=== PATIENT | female | born 2000 | race Caucasian/White ===

== ENCOUNTER 2020-01-15 14:05 | Emergency (ER) | payer OTHER ==
[~2020-01-15] VITALS: Ht 160 cm; Wt 58.2 kg
[2020-01-15] MEDS ORDERED: PREN29TA4 PO (14:13)
[2020-01-15 15:10] LABS: BASO % 0.2 % (0.0-1.0); EOS # 0.4 10^3/uL (0.0-0.5); EOS % 4.2 % (0.0-3.0); HEMATOCRIT 35.9 % (36.0-47.0); LYMPH # 1.8 10^3/uL (1.5-5.0); LYMPH % 20.1 % (24.0-44.0); MEAN CORPUSCULAR HEMOGLOBIN 27.5 pg (27.0-33.0); MEAN CORPUSCULAR HGB CONC 33.4 g/dl (32.0-36.5); MEAN CORPUSCULAR VOLUME 82.3 fl (80.0-96.0); MONO # 0.7 10^3/uL (0.0-0.8); MONO % 7.9 % (0.0-5.0); NEUTROPHILS # 6.1 10^3/uL (1.5-8.5); PLATELET COUNT, AUTOMATED 223 10^3/uL (150-450); RED BLOOD COUNT 4.36 10^6/uL (4.00-5.40); WHITE BLOOD COUNT 9.1 10^3/uL (4.0-10.0)
[2020-01-15 15:23] LABS: APPEARANCE, URINE HAZY (CLEAR); BACTERIA, URINE AUTO 1+ (NEGATIVE); BILIRUBIN, URINE AUTO NEGATIVE (NEGATIVE); BLOOD, URINE BLOOD NEGATIVE (NEGATIVE); COLOR, URINE YELLOW (YELLOW); GLUCOSE, URINE (UA) AUTO NEGATIVE (NEGATIVE); KETONE, URINE AUTO TRACE mg/dL (NEGATIVE); LEUKOCYTE ESTERASE, URINE AUTO 2+ (NEGATIVE); MUCUS, URINE MODERATE (NEGATIVE); NITRITE, URINE AUTO NEGATIVE (NEGATIVE); PROTEIN, URINE AUTO NEGATIVE (NEGATIVE); RBC, URINE AUTO 2 /HPF (0-3); SPECIFIC GRAVITY URINE AUTO 1.029 (1.002-1.035); SQUAMOUS EPITHELIAL CELL UR AU 5 /HPF (0-6); UROBILINOGEN, URINE AUTO 0.2 mg/dL (0.0-2.0); WBC, URINE AUTO 8 /HPF (0-3)
[2020-01-15 15:45] LABS: CK-MB VALUE MASS < 1.0 NG/ML (<3.6); CPK CREATINE PHOSPHOKINASE 38 U/L (26-192); MB/CK RELATIVE INDEX 2.63 (< OR =4); TROPONIN I < 0.02 NG/ML (< 0.10)
[2020-01-15 16:05] LABS: HCG, SERUM QUALITATIVE POSITIVE (NEGATIVE)
[2020-01-15] MEDS ORDERED: KEFL500C17 PO (16:09)
[2020-01-15 16:15] VITALS: BP 101/57
--- NOTE | 2020-01-15 16:59 | REP ---
OB ULTRASOUND: Real-time sonographic evaluation of gravid uterus performed. There is a single living intrauterine gestation, estimated gestational age 18 weeks 4 days, EDC 06/13/2020. Today's measurements indicate appropriate growth. BPD 44 mm = 19 weeks 2 days, 69th percentile HC 158 mm = 18 weeks 5 days, 52nd percentile AC 130 mm = 18 weeks 4 days, 49th percentile Femur length 26 mm = 17 weeks 6 days, 26th percentile HC/AC ratio 1.21, within normal range 1.07-1.26. Estimated weight 234 grams, 36th percentile. Cervix closed and measures 3.8 cm in length. heart rate 146 beats per minute. SEEN/GROSSLY UNREMARKABLE Lateral ventricles Yes Posterior fossa Yes Upper lip Yes Four-chamber heart Yes LVOT Yes RVOT Yes Stomach Yes Cord insertion Yes Three vessel cord Yes Kidneys Yes Bladder Yes Spine Yes position: Vertex. Placenta: Anterior and grade 0 with no previa or abruption. Amniotic fluid: Within normal limits. Electronically Signed by Isai Carrasco MD 01/15/2020 07:56 P
--- NOTE | 2020-01-16 21:00 | ECGEPIP ---
[facility] - ED Test Date: 2020-01-15 Pat Name: DESHAUN JOHNSON Department: Room: - Gender: Female Lead Pressman: [facility] : 2000 Requested By: SUSANNA CHURCHILL Order Number: [id number] Reading MD: Shruthi Knox Measurements Intervals [place] Rate: 83 P: 53 ME: 140 QRS: 91 QRSD: 86 T: 37 QT: 350 QTc: 411 Interpretive Statements SINUS RHYTHM BORDERLINE RIGHT AXIS DEVIATION NO PRIOR Electronically Signed on 01-16-2020 20:59:30 EDT by Shruthi Knox
== END 2020-01-15 16:17 | disposition home or self-care (01) ==
LOC: M ED 14:05
DX: O23.42 Unspecified infection of urinary tract in pregnancy, second trimester (principal); O26.892 Other specified pregnancy related conditions, second trimester; M41.9 Scoliosis, unspecified; Z3A.18 18 weeks gestation of pregnancy

== ENCOUNTER 2020-04-27 20:48 | Outpatient (CLI) | payer OTHER ==
[~2020-04-27] VITALS: Ht 160 cm; Wt 65.1 kg
[~2020-04-27 20:48] MED LIST: KEFL500C17 PO; PREN29TA4 PO
[2020-04-27 21:18] VITALS: BP 113/63
--- NOTE | 2020-04-27 22:28 | IPNPDOC ---
Obstetrical Progress Note Date of Service Apr 27, 2020 Subjective 19yo G1 at 33+2 weeks. Dated by first TM/10+2 weeks US , which gave her a FINAL EDC of 06/13/20. She complains of vaginal dampness/discharge and is concerned that her water broke. No continuous LOF or large gushes of fluid. No VB/spotting. No recent intercourse. No foul odor/abnormally colored discharge. No dysuria. Reports regular movement. Assessment Variability: Moderate Accelerations: Positive Decelerations: None Heart Rate Tracing: Category I (Reactive) Tocometer Contractions: Yes Frequency: irregular Strength: other (Patient not feeling ctxs that are traced on monitor) Sterile Vaginal Examination Dilation: Fingertip Effacement (%): 30% Station: -3 Cervical Consistency: Firm Cervical Position: Posterior Postion/Presentation: Breech presentation Assessment and Plan Age: 19 : 1 Term: 0 Pre-term: 0 Abortions: 0 Livin Status: Reassuring Additional Comments Pelvic: NEFG. SSE: cervix visually closed, no pooling (at rest or with Valsalva), normal leukorrhea, negative ferning. SVE: FT/long/high. GC/CT NAAT and GBS swabs obtained. AUS,garcia: breech presentation. MVP = 5cm. +FM (US BPP earlier today at [facility] was 8) Negative Nitrazine, ferning A/P: 19yo G1 at 33+2 weeks with no clinical evidence of PPROM, IAI, or PTL. Reassuring antepartum testing/ status. -Patient to follow up in office b/w 1-2 weeks. -Third trimester precautions were reviewed. DO DAMIEN Giles JONATHAN R. DO Apr 27, 2020 22:28
[2020-04-28 00:14] LABS: CHLAMYDIA DNA AMPLIFICATION NEGATIVE (NEGATIVE); GC DNA AMPLIFICATION NEGATIVE (NEGATIVE)
== END 2020-04-27 22:29 | disposition home or self-care (01) ==
LOC: M LDO 20:48
PROVIDERS: ATTEND Obstetrics & Gynecology
DX: O26.893 Other specified pregnancy related conditions, third trimester (principal); Z3A.33 33 weeks gestation of pregnancy
CPT/HCPCS: 59025; 76815; 87491; 87591; G0378; G0463

== ENCOUNTER 2021-10-20 10:29 | Emergency (ER) | payer OTHER ==
[~2021-10-20] VITALS: Ht 160 cm; Wt 59.1 kg
[2021-10-20] MEDS ORDERED: SPRI28TA (10:41)
[2021-10-20 15:45] LABS: GC DNA AMPLIFICATION NEGATIVE (NEGATIVE)
[2021-10-20 15:56] VITALS: BP 100/59
== END 2021-10-20 15:58 | disposition home or self-care (01) ==
LOC: M ED 10:29
DX: R10.2 Pelvic and perineal pain (principal); T19.2XXA Foreign body in vulva and vagina, initial encounter; Y92.89 Other specified places as the place of occurrence of the external cause; Z79.3 Long term (current) use of hormonal contraceptives

== ENCOUNTER 2021-11-16 13:43 | Emergency (ER) | payer OTHER ==
[~2021-11-16] VITALS: Ht 160 cm; Wt 60.0 kg
[2021-11-16 13:43] VITALS: BP 118/74
[~2021-11-16 13:43] MED LIST changes: +SPRI28TA
== END 2021-11-16 18:29 | disposition left against medical advice (07) ==
LOC: M ED 16:14
DX: Z53.29 Procedure and treatment not carried out because of patient's decision for other reasons (principal)